=== PATIENT | male | born 1965 | race Caucasian/White ===

== ENCOUNTER 2016-11-15 13:11 | Emergency (ER) | payer OTHER ==
[~2016-11-15] VITALS: Ht 180.3 cm; Wt 100.0 kg
[~2016-11-15 13:11] MED LIST: ASPI1TAB PO; CYCL10TA PO; HYDR-3713 PO; IBUP80TA PO; LIPI20TA PO; MIRT15TA3 PO; OMEP20CA3 PO; TRAZ50TA11 PO
[2016-11-15] MEDS ORDERED: NEUR100C PO (13:30)
[2016-11-15] MEDS ORDERED: ASPIRIN 81 MG CHEW TABLET PO ONE (13:45)
[2016-11-15 14:18] LABS: BASO % 0.3 % (0.0-1.0); EOS # 0.1 K/mm3 (0.0-0.50); EOS % 1.6 % (0.0-3.0); INR 0.97; LARGE UNSTAINED CELL # 0.1 K/mm3 (0.0-0.4); LARGE UNSTAINED CELL % 2.3 % (0.0-4.0); LYMPH # 1.6 K/mm3 (1.5-4.5); LYMPH % 36.2 % (24.0-44.0); MEAN CORPUSCULAR HEMOGLOBIN 31.5 pg (27.0-33.0); MEAN CORPUSCULAR HGB CONC 34.3 g/dl (32.0-36.5); MEAN CORPUSCULAR VOLUME 91.6 fl (80.0-96.0); MONO # 0.3 K/mm3 (0.0-0.8); MONO % 7.4 % (0.0-5.0); NEUTROPHILS # 2.2 K/mm3 (1.8-7.7); NEUTROPHILS % 52.1 % (36.0-66.0); PLATELET COUNT, AUTOMATED 211 k/mm3 (150-450); RED CELL DISTRIBUTION WIDTH 12.7 % (11.5-14.5); WHITE BLOOD COUNT 4.2 K/mm3 (4.0-10.0)
[2016-11-15 14:41] LABS: ALBUMIN 3.7 GM/DL (3.2-5.2); ALBUMIN/GLOBULIN RATIO 1.09 (1.00-1.93); ALKALINE PHOSPHATASE 88 U/L (45-117); ALT/SGPT 31 U/L (12-78); ANION GAP 8 MEQ/L (8-16); AST/SGOT 22 U/L (15-37); BILIRUBIN,DIRECT 0.1 MG/DL (0.0-0.2); BILIRUBIN,TOTAL 0.6 MG/DL (0.2-1.0); BLOOD UREA NITROGEN 16 MG/DL (7-18); CALCIUM LEVEL 8.6 MG/DL (8.5-10.1); CARBON DIOXIDE LEVEL 27 MEQ/L (21-32); CHLORIDE LEVEL 107 MEQ/L (98-107); CREATININE FOR GFR 1.12 MG/DL (0.70-1.30); GLOMERULAR FILTRATION RATE > 60.0 (>56); GLUCOSE, FASTING 153 MG/DL (70-105); POTASSIUM SERUM 3.6 MEQ/L (3.5-5.1); SODIUM LEVEL 142 MEQ/L (136-145); TOTAL PROTEIN 7.1 GM/DL (6.4-8.2)
--- NOTE | 2016-11-15 14:43 | REP ---
REASON: Chest pain . COMPARISON: 01/01/2015 FINDINGS: The superior mediastinal structures are midline. The cardiac silhouette is unremarkable in size, shape, and position. The diaphragmatic surfaces of the lungs are regular, and the costophrenic angles are clear. The pulmonary nation are clear. The imaged osseous structures are intact. IMPRESSION: There is no acute cardiopulmonary disease. No change from the prior exam. Signed by Chris Owen DO 11/15/2016 03:34 P
[2016-11-15] MEDS ORDERED: KETOROLAC 30 MG/ML VIAL (J1885) IV ONE (15:30)
[2016-11-15] MEDS ORDERED: PERCOCET 5MG/325MG TAB PO ONE (17:30)
[2016-11-15] MEDS ORDERED: IBUP-1022 PO (19:35)
[2016-11-15] MEDS ORDERED: CYCL10TA PO (19:35)
[2016-11-15 19:58] VITALS: BP 126/58
--- NOTE | 2016-11-16 13:58 | ECGEPIP ---
Stationary ECG Study [facility] - ED Test Date: 2016-11-15 Pat Name: CEZAR SINGH Department: Room: - Gender: M Packaging Tech: denise : 1965 Requested By: Ana Ramos Order Number: [id number] Reading MD: Ana Ramos Measurements Intervals [place] Rate: 85 P: 55 [place]: 186 QRS: 14 QRSD: 84 T: 59 QT: 364 QTc: 433 Interpretive Statements SINUS RHYTHM INCREASED RATE 01/01/15 Electronically Signed On 11-16-2016 13:58:22 EDT by Ana Ramos
--- NOTE | 2016-11-16 14:06 | ECGEPIP ---
Stationary ECG Study [facility] - ED Test Date: 2016-11-15 Pat Name: CEZAR SINGH Department: Room: - Gender: M Assistant Construction Superintendent: MurphyB: 1965 Requested By: CHESTER FANG Order Number: [id number] Reading MD: Ana Ramos Measurements Intervals [place] Rate: 67 P: 44 DC: 188 QRS: 8 QRSD: 90 T: 37 QT: 386 QTc: 408 Interpretive Statements SINUS RHYTHM NSTTW ABNORMALITY DECREASED RATE 11/15/16 Electronically Signed On 11-16-2016 14:06:02 EDT by Ana Ramos
== END 2016-11-15 20:05 | disposition home or self-care (01) ==
LOC: M ED 14:05
DX: M54.12 Radiculopathy, cervical region (principal); R00.0 Tachycardia, unspecified; G89.29 Other chronic pain; Z79.899 Other long term (current) drug therapy
CPT/HCPCS: 71020; 80048; 80076; 82550; 82553; 83880; 84484; 85025; 85610; 93005; 93041; 94760; 96374; 96375; 99285; J1885; J3360

== ENCOUNTER 2020-11-02 18:42 | Observation (INO) | payer OTHER ==
[~2020-11-02] VITALS: Ht 180.3 cm; Wt 100.0 kg
[~2020-11-02 18:42] MED LIST changes: -ASPI1TAB PO; +ASPI81TA26 PO; +CYCL-707 PO; -CYCL10TA PO; +IBUP-1022 PO; +NEUR100C PO; +OMEP1CAP73 PO; -OMEP20CA3 PO; +TRAZ-252 PO; -TRAZ50TA11 PO
[2020-11-02] MEDS ORDERED: LIPI10TA PO (19:12)
[2020-11-02] MEDS ORDERED: PRAV40TA2 (19:12)
--- NOTE | 2020-11-02 19:42 | REPVR ---
PROCEDURE INFORMATION: Exam: CT Head Without Contrast Exam date and time: 11/02/2020 7:13 PM Age: 55 years old Clinical indication: Altered mental status/memory loss; Amnesia, not specified; Additional info: Memory loss/hx of transiet global amesnia TECHNIQUE: Imaging protocol: Computed tomography of the head without contrast. Radiation optimization: All CT scans at this facility use at least one of these dose optimization techniques: automated exposure control; mA and/or kV adjustment per patient size (includes targeted exams where dose is matched to clinical indication); or iterative reconstruction. COMPARISON: MRI-Brain without Contrast 01/01/2015 7:36 PM FINDINGS: Brain: Normal. No hemorrhage. Unremarkable white matter. No mass effect. Cerebral ventricles: No ventriculomegaly. Paranasal sinuses: Visualized sinuses are unremarkable. No fluid levels. Mastoid air cells: Visualized mastoid air cells are well aerated. Bones/joints: Unremarkable. No acute fracture. Soft tissues: Unremarkable. IMPRESSION: No acute intracranial abnormality. Electronically signed by: Bandar Galicia On 11/02/2020 19:41:55 PM
--- NOTE | 2020-11-02 21:25 | REPVR ---
PROCEDURE INFORMATION: Exam: XR Chest Exam date and time: 11/02/2020 9:05 PM Age: 55 years old Clinical indication: Other: CVA TECHNIQUE: Imaging protocol: XR of the chest. Views: 1 view. COMPARISON: CR Chest, 2 view PA, Lat 11/15/2016 2:17 PM FINDINGS: Lungs: Unremarkable. No consolidation. Pleural spaces: Unremarkable. No pleural effusion. No pneumothorax. Heart/Mediastinum: Unremarkable. No cardiomegaly. Bones/joints: Unremarkable. IMPRESSION: No acute findings. Electronically signed by: Bandar Galicia On 11/02/2020 21:24:57 PM
[2020-11-02 22:29] LABS: BASO % 0.5 % (0.0-1.0); EOS % 0.5 % (0.0-3.0); HEMATOCRIT 42.1 % (42.0-52.0); HEMOGLOBIN 14.1 g/dl (13.5-17.5); LYMPH # 1.8 10^3/uL (1.5-5.0); LYMPH % 29.4 % (24.0-44.0); MEAN CORPUSCULAR HEMOGLOBIN 29.7 pg (27.0-33.0); MEAN CORPUSCULAR HGB CONC 33.5 g/dl (32.0-36.5); MEAN CORPUSCULAR VOLUME 88.6 fl (80.0-96.0); MONO # 0.5 10^3/uL (0.0-0.8); MONO % 7.7 % (2.0-8.0); NEUTROPHILS # 3.7 10^3/uL (1.5-8.5); NEUTROPHILS % 61.6 % (36.0-66.0); PLATELET COUNT, AUTOMATED 226 10^3/uL (150-450); RED BLOOD COUNT 4.75 10^6/uL (4.30-6.10)
[2020-11-02 22:43] LABS: INR 1.01; PARTIAL THROMBOPLASTIN TIME 25.9 SECONDS (24.2-38.5); PROTHROMBIN TIME 13.5 SECONDS (12.5-14.3)
[2020-11-02 22:55] LABS: ACETAMINOPHEN LEVEL < 2.0 UG/ML (10.0-30.0); ETHYL ALCOHOL (ETHANOL) < 0.003 % (0.000-0.010); SALICYLATE LEVEL < 1.7 MG/DL (5.0-30.0)
[2020-11-02 22:58] LABS: BLOOD UREA NITROGEN 12 MG/DL (7-18); CALCIUM LEVEL 9.3 MG/DL (8.5-10.1); CARBON DIOXIDE LEVEL 26 MEQ/L (21-32); CHLORIDE LEVEL 107 MEQ/L (98-107); CK-MB VALUE MASS 1.7 NG/ML (<3.6); CPK CREATINE PHOSPHOKINASE 112 U/L (39-308); CREATININE FOR GFR 1.02 MG/DL (0.70-1.30); GLOMERULAR FILTRATION RATE > 60.0 (>56); GLUCOSE, FASTING 102 MG/DL (70-100); MB/CK RELATIVE INDEX 1.52 (< OR =4); POTASSIUM SERUM 3.9 MEQ/L (3.5-5.1); SODIUM LEVEL 140 MEQ/L (136-145); TROPONIN I < 0.02 NG/ML (< 0.10)
[2020-11-02 23:12] LABS: RSV AMPLIFICATION NEGATIVE (NEGATIVE)
[2020-11-03 01:01] LABS: AMPHETAMINES LEVEL URINE NEGATIVE (NEGATIVE); BARBITURATES URINE NEGATIVE (NEGATIVE); BENZODIAZEPINES URINE NEGATIVE (NEGATIVE); CANNABINOIDS URINE NEGATIVE (NEGATIVE); COCAINE METABOLITE URINE NEGATIVE (NEGATIVE); METHADONE URINE NEGATIVE (NEGATIVE); OPIATES URINE POSITIVE (NEGATIVE); PHENCYCLIDINE URINE NEGATIVE (NEGATIVE)
[2020-11-03] MEDS ORDERED: MOM 30ML SUSPENSION UDC PO PRN (01:50)
[2020-11-03] MEDS ORDERED: MAALOX 30 ML SUSP *UDC PO PRN (01:50)
[2020-11-03] MEDS ORDERED: ACETAMINOPHEN TAB 650MG DOSE (2X325MG) PO PRN (01:50)
--- NOTE | 2020-11-03 02:34 | HPEPDOC ---
[facility] Medical History & Physical Date of Admission Nov 03, 2020 Date of Service: Nov 03, 2020 Attending Physician: LOI IBARRA MD History and Physical TIME OF SERVICE: 2:52 AM CHIEF COMPLAINT: Lapse in memory HISTORY OF PRESENT ILLNESS: Mr. Saldaña, a 51-year-old gentleman was brought to the ER by his parents for evaluation of a lapse in his memory. The patient remembers all the events that occurred yesterday, remembers going for training at [facility] this morning, and leaving work early. He is not sure how he drove his truck home or the events leading to his arrival in the ER. He was able to provide some details after receiving information from various family members. Apparently shortly after he arrived home his monument setter helper noticed that he was confused and walked with him to his parents trailer; he had a conversation with his brother which she does not recall. The patient reports having a similar episode in the past and received various tests at the [facility] in [place]. He is not sure of the results of the test. Based on our records he also had a similar episode in 2014. REVIEW OF SYSTEMS: 10 point review of systems negative except as listed in HPI PAST MEDICAL/ SURGICAL HISTORY: Transient global amnesia, dyslipidemia, chronic back pain, insomnia, GERD, migraines, class I obesity SOCIAL HISTORY: He is a former smoker, drinks alcohol occasionally, does not use recreational drugs, and recently moved back to the area from the [facility]. FAMILY HISTORY: His father has CAD ALLERGIES: Please see below. HOME MEDICATIONS: Please see below. PHYSICAL EXAMINATION: Vital Signs Date Time Temp Pulse Resp B/P (MAP) Pulse Ox O2 Delivery O2 Flow Rate FiO2 11/02/20 18:44 97.9 90 20 176/90 (118) 97 Room Air GENERAL APPEARANCE: well nourished and developed /slightly anxious teary during parts of the exam as he describes the events that he cannot recall HEENT: EOMI / MMM&P CARDIOVASCULAR: RRR/NMRG / no LE edema LUNGS: CTAB on RA ABDOMEN: contour flat / soft & NT w palpation MUSCULOSKELETAL: NCAT / ROMIx 4 INTEGUMENT: not flushed / no rashes / not cyanotic NEUROLOGICAL: CN 2-12 intact / speech not dysarthric /strength 5 out of 5 in upper and lower extremities PSYCHIATRIC: A&O x3 /able to understand and follow all commands LABORATORY DATA: IMAGING: CT head IMPRESSION: No acute intracranial abnormality. / Chest x-ray IMPRESSION: No acute findings. MICROBIOLOGY: Respiratory panel negative ASSESSMENT: Mr. Saldaña is a 55-year-old with a history of Transient global amnesia, dyslipidemia, chronic back pain, insomnia, GERD, migraines, & obesity who is admitted for what appears to be recurrent transient global amnesia. PLAN: 1. Possible transient global amnesia Dr. Velez discussed the case with Dr. Brizuela who provided the recommendations below Plan: Admit to medical floor/telemetry/per Dr. Brizuela follow-up EEG and MRI of the brain 2 dyslipidemia Plan: statin 3 chronic back pain Plan: c/w pain meds 4 migraines Plan: sumatriptan 5 GERD Plan: PPI 6 Obesity Complicates care DVT PROPHYLAXIS: TEDs/SCDs / mathieu score = 1point = low risk DISPOSITION: home after at least 2 midnight's stay Home Medications Scheduled Omeprazole (Omeprazole) 20 Mg Capsule.dr, 40 MG PO QHS Pravastatin Sodium (Pravastatin Sodium) 40 Mg Tablet, 40 MG PO QHS Scheduled PRN Hydrocodone/Acetaminophen (Hydrocodone-Acetamin 5-325 mg) 1 Each Tablet, 1 TAB PO TID PRN for PAIN LEVEL 6-10 Propylene Glycol (Lubricant Eye Drop) 10 Ml Drops, 1 DROP OU TID PRN for DRY EYES Sildenafil Citrate (Sildenafil Citrate) 100 Mg Tablet, 100 MG PO ASDIRECTED PRN for ERECTILE DYSFUNCTION Sumatriptan Succinate (Sumatriptan Succinate) 50 Mg Tablet, 50 MG PO BID PRN for MIGRAINE Allergies Coded Allergies: No Known Allergies (Unverified , 01/01/15) A-FIB/CHADSVASC A-FIB History Current/History of A-Fib/PAF?: No Current PO Anticoag Therapy: No LOI IBARRA MD Nov 03, 2020 02:34
[2020-11-03] MEDS ORDERED: PRAV40TA2 PO (04:04)
[2020-11-03] MEDS ORDERED: OMEP-218 PO (04:04)
[2020-11-03] MEDS ORDERED: SUMA50TA2 PO (04:04)
[2020-11-03] MEDS ORDERED: SILD100T PO (04:04)
[2020-11-03] MEDS ORDERED: HYDR-4571 PO (04:04)
[2020-11-03] MEDS ORDERED: LUBR1DRO10 OU (04:04)
[2020-11-03] MEDS ORDERED: HOME MED LIST COMPLETE! XX SCH (04:05)
[2020-11-03] MEDS ORDERED: SUMAtriptan SUCCINATE 25 MG TAB PO PRN (04:10)
[2020-11-03] MEDS: NORCO, ANEXSIA 5/325MG TABLET (HYDROcodone/ACETAMINOPHEN) PO PRN ×2 (04:32→14:04)
--- NOTE | 2020-11-03 05:39 | ECGEPIP ---
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
[2020-11-03 07:02] LABS: HEMATOCRIT 41.4 % (42.0-52.0); HEMOGLOBIN 13.9 g/dl (13.5-17.5); MEAN CORPUSCULAR HEMOGLOBIN 29.8 pg (27.0-33.0); MEAN CORPUSCULAR HGB CONC 33.6 g/dl (32.0-36.5); MEAN CORPUSCULAR VOLUME 88.8 fl (80.0-96.0); PLATELET COUNT, AUTOMATED 206 10^3/uL (150-450); RED BLOOD COUNT 4.66 10^6/uL (4.30-6.10)
[2020-11-03 07:25] LABS: BLOOD UREA NITROGEN 13 MG/DL (7-18); CARBON DIOXIDE LEVEL 29 MEQ/L (21-32); CHLORIDE LEVEL 108 MEQ/L (98-107); CREATININE FOR GFR 1.03 MG/DL (0.70-1.30); GLOMERULAR FILTRATION RATE > 60.0 (>56); GLUCOSE, FASTING 125 MG/DL (70-100); POTASSIUM SERUM 3.9 MEQ/L (3.5-5.1); SODIUM LEVEL 143 MEQ/L (136-145)
[2020-11-03] MEDS ORDERED: DICLOFENAC EPOLAMINE 1.3 % PATCH TOP SCH (09:00)
--- NOTE | 2020-11-03 13:48 | REPVR ---
PROCEDURE INFORMATION: Exam: MR Head Without Contrast Exam date and time: 11/03/2020 12:55 PM Age: 55 years old Clinical indication: Altered mental status/memory loss; Amnesia, not specified TECHNIQUE: Imaging protocol: MR of the head without contrast. COMPARISON: CT Head without contrast 11/02/2020 7:06 PM FINDINGS: Brain: Examination of the brain demonstrates normal morphology and signal intensity.No acute infarction, masses, midline shift or acute hemorrhage is seen. No acute intracranial abnormality is identified.There is no abnormal diffusion weighted signal intensity to suggest an acute ischemic event.The cortical leung / white matter interfaces are preserved throughout the brain.Intracranial flow voids are well maintained. Cerebral ventricles: The ventricular system is not dilated and is appropriate for the patient's age. Bones/joints: Unremarkable. Paranasal sinuses: Normal as visualized. No acute sinusitis. Mastoid air cells: Normal as visualized. No mastoid effusion. Orbital cavity: Unremarkable. Soft tissues: Unremarkable. IMPRESSION: No acute infarction, masses or hemorrhage is seen. No acute intracranial abnormality is identified. Electronically signed by: Fabian Wells On 11/03/2020 13:48:39 PM
[2020-11-03 16:35] VITALS: BP 126/59
--- NOTE | 2020-11-03 16:58 | DS.PDOC ---
Discharge Summary General Date of Admission Nov 02, 2020 at 18:43 Date of Discharge 11/03/20 Discharge Summary PROCEDURES PERFORMED DURING STAY: [None]. ADMITTING DIAGNOSES: transient global amnesia dyslipidemia chronic back pain migraines GERD Obesity DISCHARGE DIAGNOSES: transient global amnesia dyslipidemia chronic back pain migraines GERD Obesity COMPLICATIONS/CHIEF COMPLAINT: Transient Global Amnesia. HISTORY OF PRESENT ILLNESS:Piotr is a 55-year-old with a history of Transient global amnesia, dyslipidemia, chronic back pain, insomnia, GERD, migraines, & obesity who is admitted for what appears to be recurrent transient global amnesia. HOSPITAL COURSE: During the hospital stay MRI of the brain was done and it was negative for stroke or acute bleed. Neurology team recommended close follow-up and discharge patient DISCHARGE MEDICATIONS: Please see below. ALLERGIES: Please see below. PHYSICAL EXAMINATION ON DISCHARGE: VITAL SIGNS: Please see below. HEENT: EOMI / MMM&P CARDIOVASCULAR: RRR/NMRG / no LE edema LUNGS: CTAB on RA ABDOMEN: contour flat / soft & NT w palpation MUSCULOSKELETAL: NCAT / ROMIx 4 INTEGUMENT: not flushed / no rashes / not cyanotic NEUROLOGICAL: CN 2-12 intact / speech not dysarthric /strength 5 out of 5 in upper and lower extremities PSYCHIATRIC: A&O x3 /able to understand and follow all commands LABORATORY DATA: Please see below. IMAGING: PROCEDURE INFORMATION: Exam: MR Head Without Contrast Exam date and time: 11/03/2020 12:55 PM Age: 55 years old Clinical indication: Altered mental status/memory loss; Amnesia, not specified TECHNIQUE: Imaging protocol: MR of the head without contrast. COMPARISON: CT Head without contrast 11/02/2020 7:06 PM FINDINGS: Brain: Examination of the brain demonstrates normal morphology and signal intensity.No acute infarction, masses, midline shift or acute hemorrhage is seen. No acute intracranial abnormality is identified.There is no abnormal diffusion weighted signal intensity to suggest an acute ischemic event.The cortical leung / white matter interfaces are preserved throughout the brain.Intracranial flow voids are well maintained. Cerebral ventricles: The ventricular system is not dilated and is appropriate for the patient's age. Bones/joints: Unremarkable. Paranasal sinuses: Normal as visualized. No acute sinusitis. Mastoid air cells: Normal as visualized. No mastoid effusion. Orbital cavity: Unremarkable. Soft tissues: Unremarkable. IMPRESSION: No acute infarction, masses or hemorrhage is seen. No acute intracranial abnormality is identified. Electronically signed by: Fabian Wells On 11/03/2020 13:48:39 PM PROGNOSIS: Fair ACTIVITY: [As tolerated]. DIET: Cardiac DISPOSITION: Home ITEMS TO FOLLOWUP ON ON OUTPATIENT: Follow-up with neurology team in 1 week DISCHARGE CONDITION: [Stable]. TIME SPENT ON DISCHARGE: 30 minutes. Vital Signs/I&Os Vital Signs Date Time Temp Pulse Resp B/P (MAP) Pulse Ox O2 Delivery O2 Flow Rate FiO2 11/03/20 14:04 18 11/03/20 11:51 97.6 64 117/56 (76) 97 Room Air Laboratory Data Labs 24H Laboratory Tests 2 11/02/20 22:19: Immature Granulocyte % (Auto) 0.3, Neutrophils (%) (Auto) 61.6, Lymphocytes (%) (Auto) 29.4, Monocytes (%) (Auto) 7.7, Eosinophils (%) (Auto) 0.5, Basophils (%) (Auto) 0.5, Neutrophils # (Auto) 3.7, Lymphocytes # (Auto) 1.8, Monocytes # (Auto) 0.5, Eosinophils # (Auto) 0.0, Basophils # (Auto) 0.0, Nucleated Red Blood Cells % (auto) 0.0, Prothrombin Time 13.5, Prothromb Time International Ratio 1.01, Activated Partial Thromboplast Time 25.9, Anion Gap 7L, Glomerular Filtration Rate > 60.0, Calcium Level 9.3, Total Creatine Kinase 112, Creatine Kinase MB 1.7, Creatine Kinase MB Relative Index 1.52, Troponin I < 0.02, Salicylates Level < 1.7L, Acetaminophen Level < 2.0L, Ethyl Alcohol Level < 0.003, Coronavirus (COVID-19)(PCR) NEGATIVE, Influenza Type A (RT-PCR) NEGATIVE, Influenza Type B (RT-PCR) NEGATIVE, Respiratory Syncytial Virus (PCR) NEGATIVE 11/03/20 00:22: Urine Opiates Screen POSITIVEH, Urine Methadone Screen NEGATIVE, Urine Bar biturates Screen NEGATIVE, Urine Phencyclidine Screen NEGATIVE, Urine Amphetamines Screen NEGATIVE, Urine Benzodiazepines Screen NEGATIVE, Urine Cocaine Metabolite Screen NEGATIVE, Urine Cannabinoids Screen NEGATIVE 11/03/20 06:42: Nucleated Red Blood Cells % (auto) 0.0, Anion Gap 6L, Glomerular Filtration Rate > 60.0, Calcium Level 9.0 CBC/BMP Laboratory Tests 11/02/20 22:19 11/03/20 06:42 Discharge Medications Scheduled Omeprazole (Omeprazole) 20 Mg Capsule.dr, 40 MG PO QHS, (Reported) Pravastatin Sodium (Pravastatin Sodium) 40 Mg Tablet, 40 MG PO QHS, (Reported) Scheduled PRN Hydrocodone/Acetaminophen (Hydrocodone-Acetamin 5-325 mg) 1 Each Tablet, 1 TAB PO TID PRN for PAIN LEVEL 6-10, (Reported) Propylene Glycol (Lubricant Eye Drop) 10 Ml Drops, 1 DROP OU TID PRN for DRY EYES, (Reported) Sildenafil Citrate (Sildenafil Citrate) 100 Mg Tablet, 100 MG PO ASDIRECTED PRN for ERECTILE DYSFUNCTION, (Reported) Sumatriptan Succinate (Sumatriptan Succinate) 50 Mg Tablet, 50 MG PO BID PRN for MIGRAINE, (Reported) Allergies Coded Allergies: No Known Allergies (Unverified , 01/01/15) KENDALL ECHEVERRIA DO Nov 03, 2020 16:58
[2020-11-03] MEDS ORDERED: PRAVASTATIN 20 MG TAB PO SCH (21:00)
[2020-11-03] MEDS ORDERED: OMEPRAZOLE 20 MG CAP PO SCH (21:00)
--- NOTE | 2020-11-06 12:28 | EEG ---
ELECTROENCEPHALOGRAM DATE: 11/02/2020 REFERRING PHYSICIAN: Anita Tanner MD DIAGNOSIS: Amnesia. EEG#: [id number] HISTORY: The patient is a 55-year-old man who was admitted to [facility] due to impaired memory and concern for recurrence of transient global amnesia. This EEG was done to rule out epileptic potential. He is currently taking omeprazole, pravastatin, diclofenac, sumatriptan, etc. TECHNICAL DESCRIPTION: This digital electroencephalogram (EEG) was recorded by 21 scalp, ear, and two electrocardiogram (EKG) electrodes and was reviewed in bipolar and referential montages following reformatting in 10-20 international electrode placement system. INTERPRETATION: The patient was noted to be in awake and drowsy states during this EEG. Resting and awake background rhythm consisted of well-formed posterior dominant rhythm with anterior/posterior gradient comprising of 10 Hz alpha activity measuring 15-40 microvolts in amplitude which was symmetric and reactive to eye opening. Stages I and II sleep were reviewed and were symmetric bilaterally. Hyperventilation could not be performed. Photic stimulation remained unremarkable. EKG revealed normal sinus rhythm. Left mid temporal wicket waves were noted in awake and drowsy states. No clear epileptiform abnormalities were seen. No relevant clinical activity was noted. CONCLUSION: This EEG in awake, drowsy states, stage I and II sleep is within normal limits.
== END 2020-11-03 17:42 | disposition home or self-care (01) ==
LOC: M ED 18:42 → M ED INP 18:43
PROVIDERS: ADMIT Internal Medicine; ATTEND Internal Medicine
DX: G45.4 Transient global amnesia (principal); E78.5 Hyperlipidemia, unspecified; M54.9 Dorsalgia, unspecified; G43.909 Migraine, unspecified, not intractable, without status migrainosus; K21.9 Gastro-esophageal reflux disease without esophagitis; E66.9 Obesity, unspecified; G47.00 Insomnia, unspecified; Z79.899 Other long term (current) drug therapy; Z87.891 Personal history of nicotine dependence
CPT/HCPCS: 36415; 70450; 70551; 71045; 80048; 80143; 80307; 82077; 82550; 82553; 84484; 85025; 85027; 85610; 85730; 86850; 86900; 86901; 87631; 93005; 93041; 94760; 95819; 99285; G0378

== ENCOUNTER 2021-08-25 09:56 | Inpatient (IN) | payer OTHER ==
[~2021-08-25] VITALS: Ht 182.9 cm; Wt 102.3 kg
[~2021-08-25 09:56] MED LIST changes: +HYDR-4571 PO; +LIPI10TA PO; +LUBR1DRO10 OU; +OMEP-173 PO; +PRAV40TA2; +PRAV40TA2 PO; +SILD100T PO; +SUMA50TA2 PO
[2021-08-25] MEDS ORDERED: NORT10CA2 PO (10:12)
[2021-08-25] MEDS ORDERED: KETOROLAC 30 MG/ML 1ML VIAL IV ONE (11:35)
[2021-08-25] MEDS ORDERED: NS 1,000 ML IV ONE ×2 (11:35→15:00)
[2021-08-25] MEDS ORDERED: ISOVUE-370 76% 100ML VIAL As Ordered ONE (12:06)
[2021-08-25 12:22] LABS: BASO % 0.3 % (0.0-1.0); EOS # 0.1 10^3/uL (0.0-0.5); HEMATOCRIT 50.2 % (42.0-52.0); HEMOGLOBIN 16.4 g/dl (13.5-17.5); LYMPH # 0.7 10^3/uL (1.5-5.0); LYMPH % 10.6 % (24.0-44.0); MEAN CORPUSCULAR HEMOGLOBIN 28.6 pg (27.0-33.0); MEAN CORPUSCULAR HGB CONC 32.7 g/dl (32.0-36.5); MEAN CORPUSCULAR VOLUME 87.6 fl (80.0-96.0); MONO # 0.9 10^3/uL (0.0-0.8); MONO % 12.8 % (2.0-8.0); NEUTROPHILS # 5.2 10^3/uL (1.5-8.5); PLATELET COUNT, AUTOMATED 237 10^3/uL (150-450); WHITE BLOOD COUNT 6.9 10^3/uL (4.0-10.0)
[2021-08-25 12:25] LABS: ALBUMIN 4.1 GM/DL (3.2-5.2); BILIRUBIN,DIRECT 0.2 MG/DL (0.0-0.2); BILIRUBIN,TOTAL 0.5 MG/DL (0.2-1.0); TOTAL PROTEIN 7.7 GM/DL (6.4-8.2)
[2021-08-25 12:27] LABS: RED BLOOD COUNT 5.73 10^6/uL (4.30-6.10)
[2021-08-25] MEDS ORDERED: HOME MED LIST COMPLETE! XX SCH (14:55)
[2021-08-25] MEDS: NS 1,000 ML IV SCH ×2 (15:00→18:38)
[2021-08-25] MEDS ORDERED: NORCO, ANEXSIA 5/325MG TABLET (HYDROcodone/ACETAMINOPHEN) PO PRN (15:00)
[2021-08-25] MEDS ORDERED: HYDROMORPHONE HCL 0.5 MG/ 0.5 ML SYRINGE (J1170 PER 1) IV ONE ×3 (15:00→21:00)
[2021-08-25] MEDS: metroNIDAZOLE 500 MG in IV 1 EA IV SCH ×2 (16:00→23:34)
[2021-08-25 18:03] VITALS: BP 121/78
[2021-08-25] MEDS ORDERED: PERCOCET 5MG/325MG TAB PO ONE (18:15)
[2021-08-25] MEDS: KETOROLAC 30 MG/ML 1ML VIAL IV SCH ×2 (18:37→23:35)
[2021-08-25 20:57] VITALS: BP 118/58
[2021-08-25] MEDS: CIPROFLOXACIN 200 MG in IV 1 EA IV SCH (21:32)
[2021-08-26 01:04] LABS: HEMATOCRIT 39.5 % (42.0-52.0)
[2021-08-26 01:06] LABS: HEMOGLOBIN 13.1 g/dl (13.5-17.5)
[2021-08-26] MEDS: CIPROFLOXACIN 200 MG in IV 1 EA IV SCH (05:09)
[2021-08-26] MEDS: KETOROLAC 30 MG/ML 1ML VIAL IV SCH ×3 (05:09→18:36)
[2021-08-26 06:00] VITALS: BP 136/60
[2021-08-26] MEDS ORDERED: NS 1,000 ML IV ONE (07:30)
[2021-08-26] MEDS ORDERED: KETOROLAC 30 MG/ML 1ML VIAL IV ONE (07:30)
[2021-08-26] MEDS ORDERED: HYDROMORPHONE HCL 0.5 MG/ 0.5 ML SYRINGE (J1170 PER 1) IV ONE ×2 (07:30→15:00)
[2021-08-26 08:28] LABS: BASO % 0.2 % (0.0-1.0); EOS # 0.2 10^3/uL (0.0-0.5); EOS % 4.2 % (0.0-3.0); HEMATOCRIT 41.9 % (42.0-52.0); HEMOGLOBIN 13.4 g/dl (13.5-17.5); LYMPH % 24.9 % (24.0-44.0); MEAN CORPUSCULAR HEMOGLOBIN 28.4 pg (27.0-33.0); MEAN CORPUSCULAR VOLUME 88.8 fl (80.0-96.0); MONO # 0.6 10^3/uL (0.0-0.8); MONO % 14.8 % (2.0-8.0); NEUTROPHILS # 2.2 10^3/uL (1.5-8.5); NEUTROPHILS % 55.4 % (36.0-66.0); PLATELET COUNT, AUTOMATED 177 10^3/uL (150-450); RED BLOOD COUNT 4.72 10^6/uL (4.30-6.10); WHITE BLOOD COUNT 4.1 10^3/uL (4.0-10.0)
[2021-08-26] MEDS ORDERED: NS 1,000 ML IV SCH (08:30)
[2021-08-26 09:04] LABS: ALT/SGPT 62 U/L (12-78); BILIRUBIN,TOTAL 0.6 MG/DL (0.2-1.0); BLOOD UREA NITROGEN 24 MG/DL (7-18); C REACTIVE PROTEIN QUANTITATIV 4.82 MG/DL (0.00-0.30); CALCIUM LEVEL 8.6 MG/DL (8.5-10.1); CARBON DIOXIDE LEVEL 26 MEQ/L (21-32); CHLORIDE LEVEL 111 MEQ/L (98-107); CREATININE FOR GFR 1.11 MG/DL (0.70-1.30); GLOMERULAR FILTRATION RATE > 60.0 (>56); GLUCOSE, FASTING 108 MG/DL (70-100); MAGNESIUM LEVEL 2.3 MG/DL (1.8-2.4); POTASSIUM SERUM 4.7 MEQ/L (3.5-5.1); SODIUM LEVEL 142 MEQ/L (136-145); TOTAL PROTEIN 5.8 GM/DL (6.4-8.2)
[2021-08-26 09:11] LABS: ERYTHROCYTE SEDIMENTATION RATE 5 mm/hr (0-20)
[2021-08-26] MEDS: NITROGLYCERIN 0.4 MG SUBL TABLET SL PRN ×2 (09:19→09:27)
[2021-08-26 09:24] VITALS: BP 117/72
[2021-08-26 09:27] VITALS: BP 117/72
[2021-08-26] MEDS ORDERED: MORPHINE 2 MG/ML 1ML VIAL IV ONE (09:30)
[2021-08-26] MEDS ORDERED: PANTOPRAZOLE 40MG VIAL IV ONE (09:30)
[2021-08-26] MEDS ORDERED: FUROSEMIDE 40MG/4ML VIAL (J1940) IV ONE (09:30)
[2021-08-26 09:32] VITALS: BP 107/68
[2021-08-26 09:36] VITALS: BP 108/67
[2021-08-26] MEDS ORDERED: GI COCKTAIL 50ML BTL(HYOSCYAMINE/MAALOX/LIDOCAINE VISCOUS)(1:3:1) PO ONE (10:00)
[2021-08-26 10:01] LABS: CK-MB VALUE MASS 1.4 NG/ML (<3.6); MB/CK RELATIVE INDEX 2.92 (< OR =4)
[2021-08-26] MEDS: metroNIDAZOLE 500 MG in IV 1 EA IV SCH ×2 (11:52→20:16)
[2021-08-26 11:57] LABS: HEMATOCRIT 42.4 % (42.0-52.0)
[2021-08-26] MEDS: NORCO, ANEXSIA 5/325MG TABLET (HYDROcodone/ACETAMINOPHEN) PO PRN ×2 (13:33→20:23)
[2021-08-26] MEDS: NS 1,000 ML IV SCH ×2 (13:58→20:30)
[2021-08-26 14:00] VITALS: BP 137/74
[2021-08-26] MEDS ORDERED: LORazepam 2 MG/ML VIAL IV STA (18:22)
[2021-08-26] MEDS ORDERED: HYDROMORPHONE HCL 0.5 MG/ 0.5 ML SYRINGE (J1170 PER 1) IV PRN (18:25)
[2021-08-26] MEDS: CIPROFLOXACIN 400 MG in IV 1 EA IV SCH (18:35)
[2021-08-26] MEDS: HYDROMORPHONE HCL 0.5 MG/ 0.5 ML SYRINGE (J1170 PER 1) IV PRN (21:05)
[2021-08-27] MEDS: KETOROLAC 30 MG/ML 1ML VIAL IV SCH ×4 (00:11→17:42)
[2021-08-27 00:19] LABS: HEMATOCRIT 36.9 % (42.0-52.0); HEMOGLOBIN 12.2 g/dl (13.5-17.5)
[2021-08-27 02:07] VITALS: BP 94/57
[2021-08-27] MEDS: metroNIDAZOLE 500 MG in IV 1 EA IV SCH ×2 (03:06→10:08)
[2021-08-27] MEDS: NORCO, ANEXSIA 5/325MG TABLET (HYDROcodone/ACETAMINOPHEN) PO PRN (03:08)
[2021-08-27 05:25] VITALS: BP 100/57
[2021-08-27] MEDS: NS 1,000 ML IV SCH (05:50)
[2021-08-27] MEDS: CIPROFLOXACIN 400 MG in IV 1 EA IV SCH (05:50)
[2021-08-27] MEDS: HYDROMORPHONE HCL 0.5 MG/ 0.5 ML SYRINGE (J1170 PER 1) IV PRN (05:56)
[2021-08-27] MEDS: D5W/0.45% SODIUM CHLORIDE 1,000 ML IV SCH ×2 (10:08→21:22)
[2021-08-27] MEDS ORDERED: CEPACOL LOZENGE PO PRN (10:40)
[2021-08-27] MEDS ORDERED: MOM 30ML SUSPENSION UDC PO ONE (11:00)
[2021-08-27 12:33] LABS: BASO % 0.3 % (0.0-1.0); EOS # 0.1 10^3/uL (0.0-0.5); EOS % 3.9 % (0.0-3.0); HEMATOCRIT 38.5 % (42.0-52.0); HEMOGLOBIN 12.7 g/dl (13.5-17.5); LYMPH # 1.1 10^3/uL (1.5-5.0); LYMPH % 28.9 % (24.0-44.0); MEAN CORPUSCULAR HEMOGLOBIN 29.1 pg (27.0-33.0); MEAN CORPUSCULAR VOLUME 88.3 fl (80.0-96.0); MONO # 0.4 10^3/uL (0.0-0.8); MONO % 10.2 % (2.0-8.0); NEUTROPHILS # 2.1 10^3/uL (1.5-8.5); NEUTROPHILS % 56.4 % (36.0-66.0); PLATELET COUNT, AUTOMATED 190 10^3/uL (150-450); RED BLOOD COUNT 4.36 10^6/uL (4.30-6.10); WHITE BLOOD COUNT 3.6 10^3/uL (4.0-10.0)
[2021-08-27 12:59] LABS: ALBUMIN 3.2 GM/DL (3.2-5.2); ALT/SGPT 50 U/L (12-78); BILIRUBIN,TOTAL 0.4 MG/DL (0.2-1.0); BLOOD UREA NITROGEN 14 MG/DL (7-18); C REACTIVE PROTEIN QUANTITATIV 1.94 MG/DL (0.00-0.30); CALCIUM LEVEL 8.3 MG/DL (8.5-10.1); CARBON DIOXIDE LEVEL 28 MEQ/L (21-32); CHLORIDE LEVEL 111 MEQ/L (98-107); CREATININE FOR GFR 1.06 MG/DL (0.70-1.30); GLOMERULAR FILTRATION RATE > 60.0 (>56); GLUCOSE, FASTING 107 MG/DL (70-100); SODIUM LEVEL 142 MEQ/L (136-145); TOTAL PROTEIN 5.7 GM/DL (6.4-8.2)
[2021-08-27 13:17] LABS: ERYTHROCYTE SEDIMENTATION RATE 9 mm/hr (0-20)
[2021-08-27 14:00] VITALS: BP 126/88
[2021-08-27 21:06] VITALS: BP 129/66
[2021-08-27] MEDS ORDERED: LACTULOSE 20 GM/30 ML SYRUP UD PO PRN (21:55)
[2021-08-27] MEDS ORDERED: BISACODYL 10 MG SUPP PR PRN (21:55)
[2021-08-27] MEDS ORDERED: MIRALAX *UNIT DOSE* 17GM PACKET PO PRN (21:55)
[2021-08-28] MEDS: KETOROLAC 30 MG/ML 1ML VIAL IV SCH ×4 (01:03→18:12)
[2021-08-28 06:04] VITALS: BP 110/51
[2021-08-28] MEDS: D5W/0.45% SODIUM CHLORIDE 1,000 ML IV SCH (07:36)
[2021-08-28 10:40] LABS: BASO % 0.3 % (0.0-1.0); EOS # 0.1 10^3/uL (0.0-0.5); HEMATOCRIT 37.6 % (42.0-52.0); HEMOGLOBIN 12.6 g/dl (13.5-17.5); LYMPH # 0.9 10^3/uL (1.5-5.0); LYMPH % 28.6 % (24.0-44.0); MEAN CORPUSCULAR HEMOGLOBIN 28.9 pg (27.0-33.0); MEAN CORPUSCULAR HGB CONC 33.5 g/dl (32.0-36.5); MEAN CORPUSCULAR VOLUME 86.2 fl (80.0-96.0); MONO # 0.4 10^3/uL (0.0-0.8); MONO % 10.9 % (2.0-8.0); NEUTROPHILS # 1.9 10^3/uL (1.5-8.5); NEUTROPHILS % 56.9 % (36.0-66.0); PLATELET COUNT, AUTOMATED 192 10^3/uL (150-450); RED BLOOD COUNT 4.36 10^6/uL (4.30-6.10); WHITE BLOOD COUNT 3.3 10^3/uL (4.0-10.0)
[2021-08-28 11:08] LABS: ALBUMIN 3.2 GM/DL (3.2-5.2); ALT/SGPT 45 U/L (12-78); BILIRUBIN,TOTAL 0.4 MG/DL (0.2-1.0); BLOOD UREA NITROGEN 8 MG/DL (7-18); CALCIUM LEVEL 8.5 MG/DL (8.5-10.1); CARBON DIOXIDE LEVEL 27 MEQ/L (21-32); CHLORIDE LEVEL 112 MEQ/L (98-107); CREATININE FOR GFR 1.05 MG/DL (0.70-1.30); GLOMERULAR FILTRATION RATE > 60.0 (>56); GLUCOSE, FASTING 132 MG/DL (70-100); POTASSIUM SERUM 3.7 MEQ/L (3.5-5.1); SODIUM LEVEL 143 MEQ/L (136-145); TOTAL PROTEIN 5.8 GM/DL (6.4-8.2)
[2021-08-28] MEDS ORDERED: NS 1,000 ML IV SCH (11:15)
[2021-08-28] MEDS ORDERED: NS 1,000 ML IV ONE ×2 (12:30→15:00)
[2021-08-28] MEDS ORDERED: KETO10TAB PO (12:35)
[2021-08-28 14:00] VITALS: BP 127/79
[2021-08-28 18:00] VITALS: BP 138/81
[2021-08-28] MEDS: NS 1,000 ML IV SCH ×2 (18:12→21:09)
[2021-08-28 19:06] LABS: CK-MB VALUE MASS 1.3 NG/ML (<3.6); MB/CK RELATIVE INDEX 2.45 (< OR =4)
[2021-08-28 22:00] VITALS: BP 142/82
[2021-08-29] MEDS: KETOROLAC 30 MG/ML 1ML VIAL IV SCH ×2 (00:53→06:16)
[2021-08-29 06:00] VITALS: BP 136/75
[2021-08-29 06:50] LABS: HEMOGLOBIN 12.3 g/dl (13.5-17.5); MEAN CORPUSCULAR HEMOGLOBIN 29.6 pg (27.0-33.0); MEAN CORPUSCULAR HGB CONC 34.2 g/dl (32.0-36.5); MEAN CORPUSCULAR VOLUME 86.5 fl (80.0-96.0); PLATELET COUNT, AUTOMATED 201 10^3/uL (150-450); RED BLOOD COUNT 4.16 10^6/uL (4.30-6.10)
[2021-08-29 07:27] LABS: ALT/SGPT 57 U/L (12-78); BILIRUBIN,TOTAL 0.4 MG/DL (0.2-1.0); BLOOD UREA NITROGEN 7 MG/DL (7-18); CALCIUM LEVEL 8.4 MG/DL (8.5-10.1); CARBON DIOXIDE LEVEL 27 MEQ/L (21-32); CHLORIDE LEVEL 112 MEQ/L (98-107); CREATININE FOR GFR 0.97 MG/DL (0.70-1.30); GLOMERULAR FILTRATION RATE > 60.0 (>56); GLUCOSE, FASTING 108 MG/DL (70-100); POTASSIUM SERUM 3.5 MEQ/L (3.5-5.1); SODIUM LEVEL 141 MEQ/L (136-145); TOTAL PROTEIN 6.4 GM/DL (6.4-8.2)
[2021-08-29 07:28] LABS: ALBUMIN 3.1 GM/DL (3.2-5.2)
== END 2021-08-29 08:44 | disposition home or self-care (01) | DRG 392 ==
LOC: M ED 09:56 → UNDOADMIN 14:49 → M ED INP 14:49 → ENRESERV 16:52 → M MSPAV 18:09
PROVIDERS: ADMIT General Practice; ATTEND General Practice
DX: A08.11 Acute gastroenteropathy due to Norwalk agent (principal); K92.1 Melena; K56.609 Unspecified intestinal obstruction, unspecified as to partial versus complete obstruction; R31.9 Hematuria, unspecified; G45.4 Transient global amnesia; E78.5 Hyperlipidemia, unspecified; M54.9 Dorsalgia, unspecified; G47.00 Insomnia, unspecified; K21.9 Gastro-esophageal reflux disease without esophagitis; G43.909 Migraine, unspecified, not intractable, without status migrainosus; E66.9 Obesity, unspecified; Z20.822 Contact with and (suspected) exposure to COVID-19; Z79.899 Other long term (current) drug therapy; K52.9 Noninfective gastroenteritis and colitis, unspecified; R07.89 Other chest pain

== ENCOUNTER → 2023-12-20 | Outpatient (CLI) | payer OTHER ==
[~2023-12-20] MED LIST changes: +KETO10TAB PO; +NORT10CA2 PO
== END ==
LOC: M RAD 07:25
PROVIDERS: ATTEND Chiropractor
DX: M54.50 Low back pain, unspecified (principal)